=== PATIENT | male | born 1995 | race African-American/Black ===

== ENCOUNTER 2018-09-18 13:20 | Emergency (ER) | payer OTHER ==
[~2018-09-18] VITALS: Ht 188 cm; Wt 69.9 kg
[2018-09-18 13:37] VITALS: BP 145/75
[2018-09-18] MEDS ORDERED: LIDOCAINE 1% HCL (LOCAL ANESTH.) INJ 20ML MDV ONE (13:59)
== END 2018-09-18 14:55 | disposition home or self-care (01) ==
LOC: EDBD 13:20 → ER 13:24
DX: S63.602A Unspecified sprain of left thumb, initial encounter (principal); S80.12XA Contusion of left lower leg, initial encounter; V49.49XA Driver injured in collision with other motor vehicles in traffic accident, initial encounter; Y93.89 Activity, other specified; Y99.8 Other external cause status; Y92.89 Other specified places as the place of occurrence of the external cause
CPT/HCPCS: 73130; J2001